=== PATIENT | female | born 1950 | race Caucasian/White ===

== ENCOUNTER 2017-07-06 15:43 | Emergency (ER) ==
[2017-07-06 15:55] VITALS: TEMP 98.3; BMI 18.4
--- NOTE | 2017-07-06 16:17 | ED.PDOC ---
General ED Provider: Dr. DALY AGUILAR Chief Complaint: Hypertension Stated Complaint: Patient had a near-syncopal episode last week while riding lawnmower in 95 degree heat. Went home and drank water, but then went out and continued mowing. Feeling rundown since then. Not sleeping well. No pain. No GI/ sx. Occasional SOB with exertion. Came in today because concerned that her BP is too high (150/70 at home). Time Seen by Physician: 16:05 Mode of Arrival: Walk-In Information Source: Patient Primary Care Provider: BRITT QUINN Nursing and Triage Documentation Reviewed and Agree: Yes Miscellaneous Complaint Exam - Complex/Multi-System Complaint/Exam Onset/Duration: 1 week Symptoms Are: Still present Episodes Lasting: Days Initial Severity: Moderate Current Severity: Moderate Associated Signs and Symptoms: Reports: Syncope (single episode of syncope 1 week ago, woke up almost immediately with no sequelae except just not feeling right), Short of air (occasionally with exertion) Recent Echo/LV Function: No Respiratory Distress: Mild (occasional with exertion) JVD Present: No Tachypnea Present: No Stridor Present: No Abdominal Findings: Present: Normal findings Meningeal Signs Positive: No Focal Weakness: Present: None Focal Sensory Loss: Present: None Gait: Normal Gag Reflex Present: Yes Babinski Sign: Negative Right, Negative Left Joint Swelling Present: No In-Dwelling Device Present: No Differential Diagnosis: UTI Quality Indicators For Pneumonia/CAP: Mental status assessed (WNL) Review of Systems - Review Of Systems Constitutional: Reports: No symptoms Eyes: Reports: No symptoms Respiratory: Reports: No symptoms, Short of air (intermittent) Cardiac: Reports: No symptoms : Reports: No symptoms Musculoskeletal: Reports: No symptoms Skin: Reports: No symptoms Neurological: Reports: No symptoms All Other Systems: Reviewed and Negative Past Medical History - Past Medical History Previously Healthy: Yes Endocrine: Reports: None Cardiovascular: Reports: Hypertension Respiratory: Reports: None Hematological: Reports: None Gastrointestinal: Reports: GERD Genitourinary: Reports: None Neuro/Psych: Reports: Depression Musculoskeletal: Reports: None Cancer: Reports: None Last Menstrual Period: unknown - Surgical History General Surgical History: Reports: Unknown - Family History Family History: Reports: Unknown - Social History Smoking Status: Former smoker Hx Substance Use: No Alcohol Screening: None - Immunizations Tetanus Shot up to Date: No Influenza Vaccine within 12 Months: No Pneumococcal Vaccine up to Date: No Physical Exam - Physical Exam Appearance: Well-appearing, No pain distress, Well-nourished Ill-appearing: None Pain Distress: None Eyes: BLAKE, EOMI, Conjunctiva clear ENT: Ears normal, Nose normal, Oropharynx normal Neck: Supple Respiratory: Airway patent, Breath sounds clear, Breath sounds equal, Respirations nonlabored Cardiovascular: RRR, Pulses normal, No rub, No murmur GI/: Soft, Nontender, No masses, Bowel sounds normal, No Organomegaly Musculoskeletal: Normal strength, ROM intact, No edema, No calf tenderness Skin: Warm, Dry, Normal color Neurological: Sensation intact, Motor intact, Reflexes intact, Cranial nerves intact, Alert, Oriented Psychiatric: Affect appropriate, Mood appropriate Critical Care Note - Critical Care Note Total Time (mins): 0 Course - Course Hematology/Chemistry: 07/06/17 16:20 07/06/17 16:20 Orders, Labs, Meds: Lab Review 07/06/17 07/06/17 07/06/17 16:20 16:20 16:20 WBC 7.92 RBC 4.25 Hgb 13.5 Hct 38.7 MCV 91.1 MCH 31.8 H MCHC 34.9 RDW Coeff of Charlene 12.3 Plt Count 276 Immature Gran % (Auto) 0.3 Neut % (Auto) 50.0 Lymph % (Auto) 36.9 Isabela % (Auto) 8.5 Eos % (Auto) 3.3 Baso % (Auto) 1.0 Immature Gran # (Auto) 0.0 Neut # 4.0 Lymph # 2.9 Isabela # 0.7 Eos # 0.3 Baso # 0.1 Sodium 138 Potassium 3.8 Chloride 100 Carbon Dioxide 27 Anion Gap 14.8 BUN 8 Creatinine 0.84 Estimated GFR (MDRD) 68.00 BUN/Creatinine Ratio 9.52 Glucose 83 Calcium 9.9 Total Bilirubin 0.37 AST 26 ALT 18 Alkaline Phosphatase 74 Total Protein 7.8 Albumin 4.0 Globulin 3.8 Albumin/Globulin Ratio 1.05 Urine Color Yellow Urine Clarity Clear Urine pH 7.0 Ur Specific Dickson <=1.005 Urine Protein Negative Urine Glucose (UA) Negative Urine Ketones Negative Urine Blood Trace-lysed Urine Nitrite Negative Urine Bilirubin Negative Urine Urobilinogen 0.2 Ur Leukocyte Esterase Negative Urine Microscopic RBC 0-2 Ur Squamous Epith Cells Not present Orders Category Date Time Status CBC W/ AUTO DIFF Stat LAB 07/06/17 16:20 Completed COMPREHENSIVE METABOLIC PANEL Stat LAB 07/06/17 16:20 Completed URINALYSIS C & S IF INDICATED Stat LAB 07/06/17 16:20 Completed Sodium Chloride 0.9% [Sodium Chloride] 500 ml MEDS 07/06/17 17:41 Active IV BOLUS Medications Generic Name Dose Route Start Last Admin Trade Name Sophy PRN Reason Stop Dose Admin Sodium Chloride 500 mls @ 500 mls/hr 07/06/17 17:41 07/06/17 18:15 Sodium Chloride IV 07/06/17 18:40 500 mls/hr BOLUS STA Administration Vital Signs: Temp Pulse Resp BP Pulse Ox 07/06/17 18:05 150/84 H 07/06/17 17:36 159/92 H 07/06/17 15:43 98.3 F 102 H 20 184/88 H 99 Departure - Departure Time of Disposition: 18:34 Disposition: HOME SELF-CARE Discharge Problem: Dehydration, mild Hypertension Qualifiers: Hypertension type: unspecified secondary hypertension Qualified Code(s): I15.9 - Secondary hypertension, unspecified; I15 - Secondary hypertension Instructions: Dehydration (ED), Hypertension in the Older Adult (ED) Condition: Good Pt referred to PMD for follow-up: No (if no better in 4 days or if BP remains high, see doctor) Allergies/Adverse Reactions: Allergies No Known Allergies Allergy (Unverified 09/21/15 12:06) Home Medications: Ambulatory Orders Buspirone HCl 5 mg DAILY 09/21/15 Omeprazole [Prilosec] 20 mg DAILY 09/21/15 Sertraline HCl [Zoloft] 50 mg DAILY 09/21/15 Disposition Discussed With: Patient, Family
[2017-07-06 16:25] LABS: BASOPHILS # (AUTO) 0.1 K/uL (0-0.2); EOSINOPHILS # (AUTO) 0.3 K/ul (0.0-0.7); EOSINOPHILS % (AUTO) 3.3 % (0.0-7.0); HEMATOCRIT 38.7 % (37.0-47.0); HEMOGLOBIN 13.5 g/dl (12.0-16.0); IMMATURE GRANULOCYTE % (AUTO) 0.3 % (0.0-5.0); LYMPHOCYTES # (AUTO) 2.9 K/uL (0.60-3.4); LYMPHOCYTES % (AUTO) 36.9 (10.0-50.0); MEAN CORPUSCULAR HEMOGLOBIN 31.8 pg (27.0-31.0); MEAN CORPUSCULAR HGB CONC 34.9 (31.8-35.4); MEAN CORPUSCULAR VOLUME 91.1 fl (81.0-99.0); MONOCYTES # (AUTO) 0.7 K/uL (0.4-2.0); MONOCYTES % (AUTO) 8.5 (0-10); PLATELET COUNT 276 10^3/uL (140-440); RED BLOOD COUNT 4.25 10^6/ul (4.20-5.40); WHITE BLOOD COUNT 7.92 K/ul (4.6-10.2)
[2017-07-06 16:29] LABS: ADD URINE MICROSCOPIC YES; BILIRUBIN,URINE Negative (NEGATIVE); KETONES,URINE Negative (NEGATIVE); LEUKOCYTE ESTERASE ,URINE Negative (NEGATIVE); NITRITE,URINE Negative (NEGATIVE); PROTEIN,URINE Negative (NEGATIVE); URINE, BLOOD Trace-lysed (NEGATIVE)
[2017-07-06 16:46] LABS: ALBUMIN/GLOBULIN RATIO 1.05; ANION GAP 14.8; BILIRUBIN,TOTAL 0.37 mg/dL (0.00-1.20); BUN/CREATININE RATIO 9.52; CALCIUM 9.9 mg/dL (8.2-10.2); CREATININE 0.84 mg/dL (0.60-1.30); POTASSIUM 3.8 mmol/L (3.5-5.10); TOTAL PROTEIN 7.8 g/dL (5.8-8.1)
[2017-07-06] MEDS ORDERED: SODIUM CHLORIDE 500 ML IV STA (17:41)
[2017-07-06 18:40] VITALS: BP 137/84
== END 2017-07-06 19:12 | disposition home or self-care (01) ==
LOC: ED 15:43
DX: E86.0 Dehydration (principal); I10 Essential (primary) hypertension; R06.02 Shortness of breath; Z79.899 Other long term (current) drug therapy
CPT/HCPCS: 36415; 80053; 81001; 85025; 96360; 99283

== ENCOUNTER 2018-01-04 12:45 | Outpatient (CLI) ==
--- NOTE | 2018-01-04 14:56 | DI ---
EXAM: CHEST FRONTAL AND LATERAL VIEWS HISTORY: Chest pain. COMPARISON: None FINDINGS: Heart size is normal. Lungs are hyperinflated. Relative lucency of the lung zones may in dicate emphysema. A few ill-defined nodular opacities are seen in the lung apices which may represen t areas of pleuroparenchymal scarring. Cannot exclude pulmonary nodules. No acute infiltrates, vasc ular congestion or pleural fluid. IMPRESSION: 1. Indeterminate nodular opacities in the upper lungs. If old studies are available for comparison, this is recommended. Otherwise, consider correlation with CT. 2. Suspicion of chronic obstructive pulmonary disease radiographically, correlate clinically. 3. No acute cardiopulmonary process.
--- NOTE | 2018-01-04 14:56 | DI ---
EXAM: Two views of the sternum. History: Sternal pain. Findings: Evaluation is difficult due to overlapping osseous and soft tissue structures. No obvious fractures are identified. Atherosclerotic vascular calcifications. Impression: No definite fractures are seen. If symptoms persist, consider correlation with CT.
== END 2018-01-04 12:46 | disposition home or self-care (01) ==
LOC: RAD 12:45
PROVIDERS: ATTEND Family Medicine
DX: R07.89 Other chest pain (principal)